=== PATIENT | male | born 1970 | race Caucasian/White ===

== ENCOUNTER 2024-01-19 09:39 | Emergency (ER) | payer BC, SELFPAY ==
[2024-01-19] VITALS (22 sets, daily range): BP systolic 131–172; BP diastolic 81–100; PULSE 60–84; TEMP 37.1; O2SAT 96–100; BMI 41.8
--- NOTE | 2024-01-19 10:02 | ECG_ITS ---
The [facility] Test Date: 2024-01-19 Pat Name: SONY OSBORN Department: Room: - Gender: Male [employer]: : 1970 Requested By: Order Number: [id number] Reading MD: CHRISTIE WILLOUGHBY Measurements Intervals [place] Rate: 75 P: 37 NE: 166 QRS: 25 QRSD: 84 T: 52 QT: 370 QTc: 399 Interpretive Statements 1100 Sinus rhythm 8102 Low QRS voltage in chest leads 9120 atypical ECG No previous ECG available for comparison Electronically Signed On 01-22-2024 7:25:33 EST by CHRISTIE WILLOUGHBY
--- NOTE | 2024-01-19 10:02 | XR_ITS ---
The [address] [address] Patient Name: SONY OSBORN MRN: [id number] date: 1970 Sex: M Assigned Patient Location: ER Current Patient Location: ER Accession/Order Number: [id number] Exam Date: 01/19/2024 10:06 Report Date: 01/19/2024 10:37 At the request of: CHARLOTTE JOE Procedure: XR chest 2V EXAMINATION: XR chest 2V HISTORY: dizzy COMPARISON: No relevant comparison available. FINDINGS: LUNGS: No significant pulmonary parenchymal abnormalities. VASCULATURE: No increased pulmonary vasculature. PLEURA: No pneumothorax, effusion, or pleural thickening. CARDIAC: No cardiomegaly or cardiac silhouette abnormality. MEDIASTINUM: No visible mass or adenopathy. BONES: No fracture or visible bone lesion. OTHER: Negative. XR/XR chest 2V IMPRESSION: 1. No acute cardiopulmonary process. Electronically authenticated by: REYNA ROJAS Date: 01/19/2024 10:37
--- NOTE | 2024-01-19 10:04 | ED_ITS ---
HPI HPI - General Adult General Chief complaint: Dizziness Stated complaint: DIZZINESS/LIGHT HEADED Time Seen by Provider: 01/19/24 10:01 Source: patient Mode of arrival: walk-in Limitations: no limitations History of Present Illness HPI narrative: Patient is a 53-year-old male who is presenting to the ER today with chief complaint of vertigo when he is lying down flat or turning his head or turning his body when he is only lying flat. The patient is sitting up, or the ankle, and atypical positional changes will not cause vertigo. This has been ongoing for the past 3 nights. Patient states that he has a new air conditioner and has been sleeping with a new air conditioner on him. He has extremely minimal headache yesterday and today, not specific. No neck pain. No chest pain or shortness of breath. Patient has never had vertigo before. Patient does use Q- tips. Patient has no abdominal pain nausea or vomiting. No head injury, no head trauma. No other acute complaints. Patient states he has a close relative mother that had a stroke, with clogged carotid arteries, a clot broke off and causing major stroke and killed his mother. Patient chief concern is stroke. All systems are negative except as noted/marked. All systems reviewed and otherwise negative. Nurses note and vital signs reviewed and patient is not hypoxic. General: The patient appears well and in no apparent distress. Patient is resting comfortably on cart. Patient is not toxic, lethargic, or listless Skin: Warm, dry, no pallor noted. There is no rash noted. No petechiae, purpura. Head: Normocephalic, atraumatic; no midline or paracervical tenderness palpation. Forage of motion of cervical spine no difficulty Eye: Normal conjunctiva, no drainage, EOMI. PERRL Ears, Nose, Mouth, and Throat: oral mucosa is moist. Patient has hard black wax impacted and noted to the left auditory canal, I am not able to visualize the TM at all. Patient right TM shows small amount of air-fluid level, no erythema, perforation or bulging, no wax noted to the right auditory canal. Nares patent. Mouth without vesicles. Cardiovascular: Regular Rate and Rhythm, no murmur, gallop, rub Respiratory: Patient is in no distress, no accessory muscle use, lungs are clear to auscultation, no wheezing, rales or rhonchi Back: Obese, soft, non-tender, no CVA tenderness bilaterally to percussion. No CT LS midline pain GI: no tenderness to palpation, no masses appreciated. No rebound, guarding, or rigidity noted. No distention Musculoskeletal: Patient has full range of motion of all of the extremities, no motor, sensory, or focal neurological deficits Neurological: A&O x4, normal speech; NIH 0 Psychiatric: Cooperative Related Data Home Medications ?Medication ?Instructions ?Recorded ?Confirmed levothyroxine 88 mcg tablet 88 mcg PO DAILY 01/19/24 01/19/24 (Euthyrox) lisinopril 10 mg tablet 10 mg PO DAILY 01/19/24 01/19/24 Previous Rx's ?Medication ?Instructions ?Recorded meclizine 25 mg chewable tablet 25 mg PO TID PRN dizziness or 01/19/24 (Antivert) vertigo #7 tabs Allergies Allergy/AdvReac Type Severity Reaction Status Date / Time No Known Drug Allergies Allergy Verified 01/19/24 09:46 Opioid HPI Opioid Management Most Recent Opioid Data: No Data to Display Exam Constitutional Vital Signs, click to edit/add: Last Vital Signs Temp 98.7 F 01/19/24 09:46 Pulse 71 01/19/24 12:20 Resp 12 01/19/24 11:20 BP 147/81 H 01/19/24 12:00 Pulse Ox 97 01/19/24 12:20 O2 Del Method Room Air 01/19/24 09:46 Course Vital Signs Vital signs: Vital Signs Temperature 98.7 F 01/19/24 09:46 Pulse Rate 75 01/19/24 09:46 Respiratory Rate 18 01/19/24 09:46 Blood Pressure 172/89 H 01/19/24 09:46 Pulse Oximetry 99 01/19/24 09:46 Oxygen Delivery Method Room Air 01/19/24 09:46 Temperature 98.7 F 01/19/24 09:46 Pulse Rate 71 01/19/24 12:20 Respiratory Rate 12 01/19/24 11:20 Blood Pressure 147/81 H 01/19/24 12:00 Pulse Oximetry 97 01/19/24 12:20 Oxygen Delivery Method Room Air 01/19/24 09:46 Medical Decision Making MDM Narrative Medical decision making narrative: Patient's initial cardiac was negative with the workup. Patient was having vertigo only when he was lying down and changing position was lying. When he was standing up, sitting up, changing positions with his head, he would not have vertigo. He had no headache, nausea or vomiting. After cardiac workup was done, I reassessed the patient. Patient was then given Antivert, had a CT of the head that showed no acute abnormalities. Patient also had successful cerumen impaction removal of the black wax that was in the left ear. Reassessment of left ear shows erythema to the left TM where the wax is most likely adhered to the TM. Patient has minimal amount of orange wax to the left auditory canal, otherwise a black wax has been removed. With rotation and sidebending of his head, his vertigo is not present when he is sitting up. Delphine browne said with he and urinated, he had minimal vertigo when he is looking down trying urinate and then put his pants back on. Patient feels comfortable going home. Patient was sent home with prescription for Antivert. I spent 5 minutes talking to the patient at bedside on how to irrigate his ears in the shower and to never use Q-tips again. Patient understands this. No questions discharge Lab Data Labs: Lab Results 01/19/24 Range/Units 09:52 WBC 9.2 (4.0-11.0) 10^3/uL RBC 5.00 (4.70-6.10) 10^6/uL Hgb 15.2 (14.0-18.0) g/dL Hct 44.0 (42.0-54.0) % MCV 88.0 (80.0-94.0) fL MCH 30.4 (25.9-34.0) pg MCHC 34.5 (29.9-35.2) g/dL RDW 12.7 (11.0-15.0) % Plt Count 188 (150-450) 10^3/uL MPV 10.5 (9.5-13.5) fL Neut % (Auto) 60.8 (43.0-75.0) % Lymph % (Auto) 28.1 (20.5-60.0) % Davie % (Auto) 7.8 (1.7-12.0) % Eos % (Auto) 2.4 (0.9-7.0) % Baso % (Auto) 0.4 (0.2-2.0) % Neut # (Auto) 5.6 (1.4-6.5) 10^3/uL Lymph # (Auto) 2.6 (1.2-3.8) 10^3/uL Davie # (Auto) 0.7 (0.3-0.8) 10^3/uL Eos # (Auto) 0.2 (0.0-0.7) 10^3/uL Baso # (Auto) 0.0 (0.0-0.1) 10^3/uL Abs Immat Gran (auto) 0.05 H (0.00-0.03) 10^3/uL Imm/Tot Granulo (auto) 0.5 (0.0-0.5) % Sodium 137 (136-145) mmol/L Potassium 4.2 (3.5-5.1) mmol/L Chloride 102 (98-107) mmol/L Carbon Dioxide 27.9 (21.0-32.0) mmol/L Anion Gap 11.3 BUN 10.0 (7.0-18.0) mg/dL Creatinine 0.95 (0.70-1.30) mg/dL Est GFR ( Amer) >60 (>=60 mL/min/1.73m^2) Est GFR (Non-Af Amer) >60 (>=60 mL/min/1.73m^2) BUN/Creatinine Ratio 10.5 Glucose 226 H (74-106) mg/dL Calcium 8.8 (8.5-10.1) mg/dL Troponin I High Sens 9.9 (4.0-76.1) pg/mL ECG Data Attestation: I personally reviewed and interpreted this ECG as follows: (EKG interpretation. Normal sinus rhythm at 75 beats a minute. Normal axis deviation. No acute ST elevation, no acute ectopy. QTc of 399.) Discharge Plan Discharge Chief Complaint: Dizziness Clinical Impression: Vertigo, Cerumen impaction Patient Disposition: Home, Self-Care Time of Disposition Decision: 13:07 Condition: Fair Prescriptions / Home Meds: New meclizine [Antivert] 25 mg tablet,chewable 25 mg PO TID PRN (Reason: dizziness or vertigo) Qty: 7 0RF No Action levothyroxine [Euthyrox] 88 mcg tablet 88 mcg PO DAILY lisinopril 10 mg tablet 10 mg PO DAILY Print Language: Lithuanian Instructions: Vertigo (ED) Additional Instructions: You had earwax/cerumen impaction to the left ear, that has been resolved. Use [id number] Claritin, Zyrtec or Harini or Mucinex DM for the next 5 to 7 days to help with sinus congestion. Irrigate your ears in the shower as shown with the left ear and the right ear a few times a week to help earwax impaction again. Use Antivert if needed. Follow-up with ENT if needed. Referrals: Physician,Non-Staff, MD [Physician] - 1 week
[2024-01-19 10:08] LABS: Basophils Percent Auto 0.4 % (0.2-2.0); Eosinophils Absolute Auto 0.2 10^3/uL (0.0-0.7); Eosinophils Percent Auto 2.4 % (0.9-7.0); Hemoglobin 15.2 g/dL (14.0-18.0); Immature Granulocytes Abs Auto 0.05 10^3/uL (0.00-0.03); Immature Granulocytes Pct Auto 0.5 % (0.0-0.5); Lymphocytes Absolute Auto 2.6 10^3/uL (1.2-3.8); Lymphocytes Percent Auto 28.1 % (20.5-60.0); Mean Corpuscular HGB Conc 34.5 g/dL (29.9-35.2); Mean Corpuscular Hemoglobin 30.4 pg (25.9-34.0); Mean Platelet Volume 10.5 fL (9.5-13.5); Monocytes Absolute Auto 0.7 10^3/uL (0.3-0.8); Monocytes Percent Auto 7.8 % (1.7-12.0); Neutrophils Absolute Auto 5.6 10^3/uL (1.4-6.5); Neutrophils Percent Auto 60.8 % (43.0-75.0); Platelet Count 188 10^3/uL (150-450); Red Cell Distribution Width 12.7 % (11.0-15.0); White Blood Count 9.2 10^3/uL (4.0-11.0)
[2024-01-19 10:24] LABS: Anion Gap 11.3; BUN Creatinine Ratio 10.5; Calcium 8.8 mg/dL (8.5-10.1); Carbon Dioxide 27.9 mmol/L (21.0-32.0); Chloride 102 mmol/L (98-107); Estimated GFR (African America >60 (>=60 mL/min/1.73m^2); Estimated GFR (Non-African Ame >60 (>=60 mL/min/1.73m^2); Glucose 226 mg/dL (74-106); Potassium 4.2 mmol/L (3.5-5.1); Sodium 137 mmol/L (136-145); Troponin I High Sensitivity 9.9 pg/mL (4.0-76.1)
--- NOTE | 2024-01-19 10:55 | CT_ITS ---
[address] [address] Patient Name: SONY OSBORN MRN: [id number] date: 1970 Sex: M Assigned Patient Location: ER Current Patient Location: ED.[facility] Accession/Order Number: [id number] Exam Date: 01/19/2024 11:24 Report Date: 01/19/2024 11:44 At the request of: CHARLOTTE JOE Procedure: CT head/brain wo con EXAMINATION: CT head/brain wo con HISTORY: vertigo COMPARISON: No relevant comparison available. TECHNIQUE: Axial CT images were obtained without IV contrast. Dose reduction techniques were achieved by using automated exposure control and/or adjustment of mA and/or kV according to patient size and/or use of iterative reconstruction technique. FINDINGS: BRAIN: No edema, hemorrhage, mass, acute infarction, or inappropriate atrophy. CSF SPACES: No hydrocephalus, subarachnoid hemorrhage, or mass. Appropriate for age. SKULL: No fracture, mass, or other significant visible lesion. SINUSES: Mild chronic sinusitis. ORBITS: No appreciable abnormality on the limited views. OTHER: No appreciable fluid or soft tissue within the middle ear or mastoid air cells bilaterally. CT/CT head/brain wo con IMPRESSION: 1. No acute or suspicious findings of the brain to account for patient's symptoms. 2. Mild chronic sinusitis. Electronically authenticated by: REYNA ROJAS Date: 01/19/2024 11:44
[2024-01-19] MEDS: MECLIZINE HCL 12.5 MG TABLET 25 MG PO (11:10)
[2024-01-19] MEDS: CARBAMIDE PEROXIDE 6.5% EAR DROPS 300 DROP/15 ML BOTTLE 10 DROP OT (11:11)
== END 2024-01-19 13:11 | disposition home or self-care (01) ==
PROVIDERS: Emergency Provider Emergency Medicine; Family Provider Family Medicine; PCP Internal Medicine
DX: R42 Dizziness and giddiness (principal); H61.22 Impacted cerumen, left ear
CPT/HCPCS: 36415; 69209; 70450; 71046; 80048; 84484; 85025; 93005; 99285